=== PATIENT | female | born 1970 | race Caucasian/White ===

== ENCOUNTER 2016-09-23 16:28 | Emergency (ER) | payer OTHER ==
[~2016-09-23] VITALS: Ht 149.9 cm; Wt 86.0 kg
[2016-09-23 18:07] VITALS: BP 179/89
== END 2016-09-23 18:09 | disposition home or self-care (01) ==
LOC: EMS 16:33
DX: T16.1XXA Foreign body in right ear, initial encounter (principal); H66.91 Otitis media, unspecified, right ear
CPT/HCPCS: 99284